=== PATIENT | female | born 1950 | race Two or more races ===

== ENCOUNTER 2017-11-01 21:43 | Emergency (ER) | payer MEDICAID ==
[~2017-11-01] VITALS: Ht 154.9 cm; Wt 81.6 kg
--- NOTE | 2017-11-01 23:07 | NUR ---
PT TAKEN TO ROOM #17 AND IS AWAITING EVAL BY Immanuel JACKMAN, PAC.
--- NOTE | 2017-11-02 00:11 | NUR ---
WOUND WAS PACKED WITH 1/4" PACKING STRIP SOAKED IN NS. AREA COVERED WITH 4X4. Patient discharged to home in stable condition. Written and verbal after care instructions given. Patient verbalizes understanding of instruction. PT AMBULATED OUT WITH A STEADY GAIT. VSS.
[2017-11-02 00:23] VITALS: BP 150/65
== END 2017-11-02 00:11 | disposition home or self-care (01) ==
LOC: ER 21:43
DX: S81.801A Unspecified open wound, right lower leg, initial encounter (principal); I87.8 Other specified disorders of veins; I10 Essential (primary) hypertension; W10.1XXA Fall (on)(from) sidewalk curb, initial encounter; Y93.89 Activity, other specified; Y92.89 Other specified places as the place of occurrence of the external cause; Y99.8 Other external cause status
CPT/HCPCS: 93971-TC; A4606; A6407; Z7610